=== PATIENT | male | born 1980 | race Caucasian/White ===

== ENCOUNTER 2016-12-02 13:09 | Emergency (ER) | payer SELFPAY ==
--- NOTE | 2016-12-02 14:38 | ED CLINICAL REPORT ---
Clinical Report - Physicians/Mid Levels [facility] [address] [place] [address] 12/02/2016 13:09 Patient: LIZ AGUILA Time Seen: 1316; upon arrival, initial patient contact, initial documentation, patient care assumed. Arrived- By private vehicle. Historian- patient and spouse. HISTORY OF PRESENT ILLNESS Chief Complaint: LEFT TESTICULAR PAIN. This started about 1 years ago and is still present and worsening. (1 weeks ago). The problem is described as moderate. It was gradual in onset and has been constant. No penile discharge, discomfort with urination, urinary frequency, genital lesion or urgency of urination. He has had moderate testicular pain, involving the left testicle with swelling. No redness. Able to void. Not voiding only small amounts. The patient has had unprotected intercourse. Sexual history is noncontributory. Similar symptoms previously: Milder. ( swelling started about a year ago, went to dr, had US done, was told he had a cyst, it never went away, and it has been slowly getting bigger and then this past week got even more big and more pain). Recent medical care: Not recently seen/assessed. REVIEW OF SYSTEMS No fever, flank pain, hematuria, abdominal pain or vomiting. No diarrhea, chest pain or difficulty breathing. All systems otherwise negative, except as recorded above. PAST HISTORY See nurses notes. ( PROBLEMS: Testicular cyst. Eye Injury. Immunizations. Corneal Foreign Body. --13:20 Jeanette Vaughn, R.N.). SOCIAL HISTORY Never smoker. History of weekly drug use: marijuana. No alcohol use. No recent travel. Is a local resident. He lives with spouse. FAMILY HISTORY Negative. ADDITIONAL NOTES The nursing notes have been reviewed with agreement regarding the chief complaint, HPI, ROS, PMH and patient medications and allergies. PHYSICAL EXAM Vital Signs: 12/02/2016 13:17 BP: 122/72. HR: 56. RR: 16. O2 saturation: 99%. Temp: 97.7 F. Pain level now: 7/10. Have been reviewed as abnormal and appear to be correct. Blood pressure normal. Bradycardic. Respiratory rate normal. Temperature normal. Oxygen saturation normal. Appearance: Alert. Oriented X3. No acute distress. ENT: Normal external inspection. Pharynx normal. Neck: Neck supple. CVS: Heart sounds normal. Respiratory: No respiratory distress. Breath sounds normal. Abdomen: Soft and nontender. Bowel sounds normal. No organomegaly. No mass. Back: Normal external inspection. : Testes descended. Abnormal genitalia. Medium sized left-sided scrotal mass consistent with solid mass. Not consistent with abscess, hernia, epididymitis or torsion. Scrotal swelling. Tenderness. No urethral discharge, genital lesion or herpes-like lesions. Skin: Skin warm and dry. Normal skin color. No rash. Normal skin turgor. Extremities: Extremities exhibit normal ROM. No lower extremity edema. Neuro: Oriented X 3. No motor deficit. No sensory deficit. LABS, X-RAYS, AND EKG Scrotal Sonogram: . multiple cysts on L epidydimitis, one as large 2.5cm by 2cm, and few cysts on R epidydimitis, good blood flow, venous and arterial verbal report by [facility]. Interpretation time: 1425. Laboratory Tests: UA-Culture if indicated: (LESLIE: 12/02/2016 14:30) ( MsgRcvd 12/02/2016 14:57) Final results Test Result Flag Units (Reference) URINE COLOR DEANDRA URINE APPEARANCE CLEAR URINE GLUCOSE NEGATIVE (NEGATIVE) URINE BILIRUBIN NEGATIVE (NEGATIVE) URINE KETONE NEGATIVE (NEGATIVE) URINE SPECIFIC GRAVITY 1.015 (1.010-1.030) URINE PH 7.5 (5.0-8.0) URINE PROTEIN 1+ (NEGATIVE) URINE UROBILINOGEN 1.0 EU/dL (0.2-1.0) URINE NITRITE NEGATIVE (NEGATIVE) URINE BLOOD NEGATIVE (NEGATIVE) URINE LEUK ESTERASE NEGATIVE (NEGATIVE) URINE RBC NONE SEEN rbc/hpf (0-1) URINE WBC 0-1 wbc/hpf (0-1) URINE EPITHELIAL CELLS 0-1 EPI/hpf (0-5) URINE BACTERIA NONE SEEN (NONE SEEN) URINE COMMENT CULT NOT INDICATED 1+ AMORPHOUS CRYSTALSURINE CULTURES ARE SET-UP BASED ON THE FOLLOWING CRITERIA:POSITIVE NITRITEPOSITIVE LEUKOCYTE ESTERASEGREATER THAN 10 WHITE BLOOD CELLSMODERATE (2+) OR GREATER BACTERIA CBC w Diff: (LESLIE: 12/02/2016 13:35) ( MsgRcvd 12/02/2016 13:46) Final results Test Result Flag Units (Reference) WHITE BLOOD COUNT 5.2 K/uL (4.5-11.5) RED BLOOD COUNT 4.90 M/uL (4.50-5.90) HEMOGLOBIN 14.9 gm/dL (13.5-17.5) HEMATOCRIT 44.2 % (41.0-53.0) MEAN CELL VOLUME 90 fL (80-100) MEAN CORPUSCULAR HGB 30 pg (26-34) MEAN CORPUSCULAR HGB CONC 34 g/dL (31-37) RED CELL DISTRIBUTION WIDTH 12.8 % (11.6-14.8) PLATELET COUNT 156 K/uL (150-400) NEUTROPHIL % 51.8 % (50-75) LYMPH % 31.5 % (25-40) MONO % 7.3 % (3-14) EOSINOPHIL % 8.9 H % (0-4) BASOPHIL % 0.5 % (0-2) CMP: (LESLIE: 12/02/2016 13:35) ( MsgRcvd 12/02/2016 13:56) Final results Test Result Flag Units (Reference) GLUCOSE 97 mg/dL (70-110) BUN 15 mg/dL (7-18) CREATININE 1.0 mg/dL (0.6-1.3) Estimated GFR >60 mL/min Estimated GFR- >60 mL/min Note: Persistent reduction over 3 months in eGFR<60 mL/min/1.73 m2 defines CKD. Patients with eGFR values>=60 mL/min/1.73 m2 may also have CKD if evidence ofpersistent proteinuria. Additional information may be foundat www.kidney.org. SODIUM 144 mmol/L (136-145) POTASSIUM 4.3 mmol/L (3.5-5.1) CHLORIDE 107 mmol/L (98-107) CARBON DIOXIDE 32 mmol/L (21-32) CALCIUM 9.1 mg/dL (8.5-10.1) TOTAL PROTEIN 7.1 g/dL (6.4-8.2) ALBUMIN 4.2 g/dL (3.3-5.0) BILIRUBIN, TOTAL 2.8 H mg/dL (0.0-1.0) ALKALINE PHOSPHATASE 59 U/L (46-116) AST (SGOT) 15 U/L (15-37) ALT (SGPT) 22 U/L (12-78) . PROGRESS AND PROCEDURES Patient and spouse counseled in person regarding the patient's stable condition, test results and diagnosis. 1433. Differential Diagnosis: Other possible considerations: testicular: ca, cyst, benign tumor, epidydimitis, hyrdocele. Above considerations are based on history, physical exam, reassessment, laboratory data and other information. Differential diagnosis was discussed with patient and patient's spouse. Disposition: Discharged home in good and unchanged condition (14:38). Condition: good and stable. CLINICAL IMPRESSION (B testicular cysts - multiple). INSTRUCTIONS Do not work today. Warnings: Further evaluation is necessary in order to conduct further tests and assess the possibility of serious illness. It is very important to follow up with a physician. GENERAL WARNINGS: Return or contact your physician immediately if your condition worsens or changes unexpectedly, if not improving as expected, or if other problems arise. Specifically return if problem worsens. Prescription Medications: Ultram 50 mg tablets: take 1-2 orally every 6 hours as needed for pain. Dispense twenty (20). No refills. Substitution is permissible. Understanding of the discharge instructions verbalized by patient and family. Follow-up with: Everardo Hernandez MD, Urology, , [address] [facility] [address]; Deejay Taylor MD, Urology, , [address] [address] Follow up in about two days even if well. Call for an appointment. Summary of care provided to patient and family. (Electronically signed by Selene Camejo A.R.N.P. 12/02/2016 18:09)
--- NOTE | 2016-12-02 14:38 | ED ORDER SUMMARY ---
..... Patient: ILZ AGUILA OrderSheet [facility] VisitID: [id number] [place] [address] 35y, M Registration Date/Time: 12/02/2016 ORDER SHEET Weight: 61.2 kg (stated) Allergies: None GENERAL ORDERS: US Scrotum/Testicular Urgent (13:12/02/2016 HBivens A.R.N.P.) (Ack 13:27 KHoerner) (14:29 KKnebel R.N.) UA-Culture if indicated Urgent (13:12/02/2016 HBivens A.R.N.P.) (Ack 13:27 KHoerner) CBC w Diff Urgent (13:12/02/2016 HBivens A.R.N.P.) (Ack 13:27 KHoerner) (14:29 KKnebel R.N.) CMP Urgent (13:12/02/2016 HBivens A.R.N.P.) (Ack 13:27 KHoerner) (14:29 KKnebel R.N.) MEDICATION ORDERS: IV FLUIDS: ORDER SHEET NOTES: [Electronically signed by Selene CamejoR.N.P. (18:09 12/02/2016)] [Electronically signed by Jeanette Vaughn R.N. (20:22 12/02/2016)] [Electronically locked/signed by Jeanette Vaughn R.N. (20:22 12/02/2016)]
--- NOTE | 2016-12-02 14:38 | ED ORDER SUMMARY ---
..... Patient: LIZ AGUILA OrderSheet [facility] VisitID: [id number] [place] [address] 35y, M Registration Date/Time: 12/02/2016 ORDER SHEET Weight: 61.2 kg (stated) Allergies: None GENERAL ORDERS: US Scrotum/Testicular Urgent (13:12/02/2016 HBivens A.R.N.P.) (Ack 13:27 KHoerner) (14:29 KKnebel R.N.) UA-Culture if indicated Urgent (13:12/02/2016 HBivens A.R.N.P.) (Ack 13:27 KHoerner) CBC w Diff Urgent (13:12/02/2016 HBivens A.R.N.P.) (Ack 13:27 KHoerner) (14:29 KKnebel R.N.) CMP Urgent (13:12/02/2016 HBivens A.R.N.P.) (Ack 13:27 KHoerner) (14:29 KKnebel R.N.) MEDICATION ORDERS: IV FLUIDS: ORDER SHEET NOTES: [Electronically signed by Selene CamejoR.N.P. (18:09 12/02/2016)] [Electronically signed by Jeanette Vaughn R.N. (20:22 12/02/2016)] [Electronically locked/signed by Jeanette Vaughn R.N. (20:22 12/02/2016)]
--- NOTE | 2016-12-02 14:38 | ED NURSING NOTES ---
Clinical Report - Nurses [facility] [address] [place] [address] 12/02/2016 13:09 Patient: LIZ AGUILA TRIAGE Triage time 13:Dec 02 2016. Acuity: LEVEL 3. Chief Complaint: (lump on left testicle). Alert. No acute distress. SHASHANK COMA SCORE: [place] Coma Scale: 15- eyes open spontaneously (4); best verbal response- oriented x 4 (5); best motor response- obeys commands (6). --13:25 Jeanette Vaughn R.N. 13:17 12/02/16. BP: 122/72. HR: 56. RR: 16. O2 saturation: 99%. Temp: 97.7 F. Pain level now: 01/03. --13:25 Jeanette Vaughn R.N. Weight: 61.2 kg stated. Height/Length: 69 inches Per Patient. BMI: 19.9. --13:23 Jeanette Vaughn R.N. Medications None. --13:20 Jeanette Vaughn R.N. Medication/allergy information source: the patient. --13:25 Jeanette Vaughn R.N. Allergies None. --13:20 Jeanette Vaughn R.N. History Arrived by private vehicle. Historian: patient. Onset. (over a year). ( pt states that he had US at [facility] about a year ago and dx with a cyst. pt states that the lump has increased and is causing him pain. pt states that he has been unable to work all week due to pain.). He has had testicular pain. Treatment SKI INSTRUCTOR: None. PAST MEDICAL HX: Immunizations: up-to-date. SOCIAL HX: Never smoker. History of occasional drug use: marijuana. No alcohol use. No infectious disease exposure. SELF HARM ASSESSMENT: A self harm assessment was performed. The patient answered "no" to the question "Do you have thoughts of harming or killing yourself?". FALL RISK ASSESSMENT: Fall risk assessment completed. No fall risk identified. NUTRITIONAL RISK ASSESSMENT: The nutritional risk assessment revealed no deficiencies. FUNCTIONAL ASSESSMENT: Functional assessment: no impairments noted. LEARNING NEEDS ASSESSMENT: The learning needs assessment revealed no barriers. ABUSE ASSESSMENT: Abuse assessment: The patient was asked "Do you feel safe in your home?". SKIN INTEGRITY ASSESSMENT: Skin integrity risk assessment completed. No skin integrity risk identified. --13:25 Jeanette Vaughn R.N. PROBLEMS: Testicular cyst. Eye Injury. Immunizations. Corneal Foreign Body. --13:20 Jeanette Vaughn R.N. Interventions ID band on patient. To room. --13:25 Jeanette Vaughn R.N. PHYSICAL ASSESSMENT GENERAL / NEURO / PSYCH: Alert. Oriented X 4. Appears in no acute distress. RESPIRATORY: Respirations not labored. CVS: Capillary refill less than 2 seconds. GI / : Abdomen soft and nontender. Left testicular tenderness. ( swelling in left testicle). SKIN: Skin is warm and dry. --13:25 Jeanette Vaughn R.N. NURSING PROGRESS NOTES Patient gowned. Head of bed elevated. Patient identifiers checked. Call light placed in reach. Side rails up. Bed placed in lowest position. Brakes of bed on. --13:25 Jeanette Vaughn R.N. Blood samples drawn from the right antecubital space with Vacutainer 23g by [employer] ; labeled in presence of the patient and sent to lab: kimberly carvalho. --13:38 Griselda Whitfield. DISPOSITION / DISCHARGE Departure time: 1344Dec 02 2016. Condition at departure: unchanged. No learning barriers present. Discharge instructions provided and reviewed with the patient. Reviewed medication(s) side effects, precautions, dosing and course information. Prescription(s) given to the patient. Reviewed referral to a urologist for followup. The patient was discharged home and accompanied by spouse. He left the Emergency Department ambulatory and via private vehicle. Family member driving. FALL RISK ASSESSMENT: Fall risk assessment completed. No fall risk identified. --15:20 Jeanette Vaughn R.N. 13:45 12/02/16. BP: 110/70. HR: 57. RR: 16. O2 saturation: 100%. Pain level now: 01/03. --15:20 Jeanette Vaughn R.N. Locked/Released at 12/02/2016 20:22 by Jeanette Vaughn R.N.
--- NOTE | 2016-12-02 14:38 | ED NURSING NOTES ---
Clinical Report - Nurses [facility] [address] [place] [address] 12/02/2016 13:09 Patient: LIZ AGUILA TRIAGE Triage time 13:Dec 02 2016. Acuity: LEVEL 3. Chief Complaint: (lump on left testicle). Alert. No acute distress. SHASHANK COMA SCORE: [place] Coma Scale: 15- eyes open spontaneously (4); best verbal response- oriented x 4 (5); best motor response- obeys commands (6). --13:25 Jeanette Vaughn R.N. 13:17 12/02/16. BP: 122/72. HR: 56. RR: 16. O2 saturation: 99%. Temp: 97.7 F. Pain level now: 01/03. --13:25 Jeanette Vaughn R.N. Weight: 61.2 kg stated. Height/Length: 69 inches Per Patient. BMI: 19.9. --13:23 Jeanette Vaughn R.N. Medications None. --13:20 Jeanette Vaughn R.N. Medication/allergy information source: the patient. --13:25 Jeanette Vaughn R.N. Allergies None. --13:20 Jeanette Vaughn R.N. History Arrived by private vehicle. Historian: patient. Onset. (over a year). ( pt states that he had US at [facility] about a year ago and dx with a cyst. pt states that the lump has increased and is causing him pain. pt states that he has been unable to work all week due to pain.). He has had testicular pain. Treatment EMERGING SOLUTIONS EXECUTIVE: None. PAST MEDICAL HX: Immunizations: up-to-date. SOCIAL HX: Never smoker. History of occasional drug use: marijuana. No alcohol use. No infectious disease exposure. SELF HARM ASSESSMENT: A self harm assessment was performed. The patient answered "no" to the question "Do you have thoughts of harming or killing yourself?". FALL RISK ASSESSMENT: Fall risk assessment completed. No fall risk identified. NUTRITIONAL RISK ASSESSMENT: The nutritional risk assessment revealed no deficiencies. FUNCTIONAL ASSESSMENT: Functional assessment: no impairments noted. LEARNING NEEDS ASSESSMENT: The learning needs assessment revealed no barriers. ABUSE ASSESSMENT: Abuse assessment: The patient was asked "Do you feel safe in your home?". SKIN INTEGRITY ASSESSMENT: Skin integrity risk assessment completed. No skin integrity risk identified. --13:25 Jeanette Vaughn R.N. PROBLEMS: Testicular cyst. Eye Injury. Immunizations. Corneal Foreign Body. --13:20 Jeanette Vaughn R.N. Interventions ID band on patient. To room. --13:25 Jeanette Vaughn R.N. PHYSICAL ASSESSMENT GENERAL / NEURO / PSYCH: Alert. Oriented X 4. Appears in no acute distress. RESPIRATORY: Respirations not labored. CVS: Capillary refill less than 2 seconds. GI / : Abdomen soft and nontender. Left testicular tenderness. ( swelling in left testicle). SKIN: Skin is warm and dry. --13:25 Jeanette Vaughn R.N. NURSING PROGRESS NOTES Patient gowned. Head of bed elevated. Patient identifiers checked. Call light placed in reach. Side rails up. Bed placed in lowest position. Brakes of bed on. --13:25 Jeanette Vaughn R.N. Blood samples drawn from the right antecubital space with Vacutainer 23g by [employer] ; labeled in presence of the patient and sent to lab: kimberly carvalho. --13:38 Griselda Whitfield. DISPOSITION / DISCHARGE Departure time: 1344Dec 02 2016. Condition at departure: unchanged. No learning barriers present. Discharge instructions provided and reviewed with the patient. Reviewed medication(s) side effects, precautions, dosing and course information. Prescription(s) given to the patient. Reviewed referral to a urologist for followup. The patient was discharged home and accompanied by spouse. He left the Emergency Department ambulatory and via private vehicle. Family member driving. FALL RISK ASSESSMENT: Fall risk assessment completed. No fall risk identified. --15:20 Jeanette Vaughn R.N. 13:45 12/02/16. BP: 110/70. HR: 57. RR: 16. O2 saturation: 100%. Pain level now: 01/03. --15:20 Jeanette Vaughn R.N. Locked/Released at 12/02/2016 20:22 by Jeanette Vaughn R.N.
--- NOTE | 2016-12-02 14:42 | DIAGNOSTIC IMAGING REPORT ---
PROCEDURE: US SCROTUM/TESTICLE INDICATION: Left testicular pain x 4 days. TECHNIQUE: Beckford scale and color Doppler sonographic images through the scrotum were obtained. COMPARISON: None. FINDINGS: RIGHT TESTICLE: Right testicle measures 4.2 x 2.3 x 3.1 cm with normal echo structure and vascularity. Multiple epididymal head cysts, largest 8 mm. Small hydrocele. LEFT TESTICLE: Left testicle measures at 3.5 x 2.9 x 3.4 cm with normal echo structure and vascularity. Multiple large epididymal cysts, largest 4.9 cm. IMPRESSION: 1. Multiple left epididymal cysts, largest 4.9 cm 2. Multiple small right epididymal head cysts 3. Normal testicles 4. Small right hydrocele
--- NOTE | 2016-12-02 20:23 | ED MAR SUMMARY ---
..... Medication Administration Record [facility] [address] [place], [place] [id number] Patient: LIZ AGUILA Visit ID: [id number] 35y, M Weight: 61.2 kg Height/Length: 69 in BMI: 19.9 ALLERGIES: None
--- NOTE | 2016-12-02 20:23 | ED DISCHARGE INSTRUCTIONS ---
Patient: LZI AGUILA General Instructions [facility] VisitID: [id number] [place] [address] 35y, M Registration Date/Time: 12/02/2016 (B testicular cysts - multiple). INSTRUCTIONS Do not work today. Warnings: Further evaluation is necessary in order to conduct further tests and assess the possibility of serious illness. It is very important to follow up with a physician. GENERAL WARNINGS: Return or contact your physician immediately if your condition worsens or changes unexpectedly, if not improving as expected, or if other problems arise. Specifically return if problem worsens. Prescription Medications: Ultram 50 mg tablets: take 1-2 orally every 6 hours as needed for pain. Dispense twenty (20). No refills. Substitution is permissible. Understanding of the discharge instructions verbalized by patient and family. Follow-up with: Everardo Hernandez MD, Urology, , [address] [address]; Deejay Taylor MD, Urology, , [address] [address] Follow up in about two days even if well. Call for an appointment. Summary of care provided to patient and family. ADDITIONAL INFORMATION Tramadol Hydrochloride Oral tablet What is this medicine? TRAMADOL (TRA ma dole) is a pain reliever. It is used to treat moderate to severe pain in adults. How should I use this medicine? Take this medicine by mouth with a full glass of water. Follow the directions on the prescription label. If the medicine upsets your stomach, take it with food or milk. Do not take more medicine than you are told to take. Talk to your software engineer web services regarding the use of this medicine in children. Special care may be needed. What side effects may I notice from receiving this medicine? Side effects that you should report to your doctor or health care giver as soon as possible: allergic reactions like skin rash, itching or hives, swelling of the face, lips, or tongue breathing difficulties, wheezing confusion itching light headedness or fainting spells redness, blistering, peeling or loosening of the skin, including inside the mouth seizures Side effects that usually do not require medical attention (report to your doctor or health care giver if they continue or are bothersome): constipation dizziness drowsiness headache nausea, vomiting What may interact with this medicine? Do not take this medicine with any of the following medications: MAOIs like Carbex, Eldepryl, Marplan, Nardil, and Parnate This medicine may also interact with the following medications: alcohol or medicines that contain alcohol antihistamines benzodiazepines bupropion carbamazepine or oxcarbazepine clozapine cyclobenzaprine digoxin furazolidone linezolid medicines for depression, anxiety, or psychotic disturbances medicines for migraine headache like almotriptan, eletriptan, frovatriptan, naratriptan, rizatriptan, sumatriptan, zolmitriptan medicines for pain like pentazocine, buprenorphine, butorphanol, meperidine, nalbuphine, and propoxyphene medicines for sleep muscle relaxants naltrexone phenobarbital phenothiazines like perphenazine, thioridazine, chlorpromazine, mesoridazine, fluphenazine, prochlorperazine, promazine, and trifluoperazine procarbazine warfarin What if I miss a dose? If you miss a dose, take it as soon as you can. If it is almost time for your next dose, take only that dose. Do not take double or extra doses. Where should I keep my medicine? Keep out of the reach of children. Store at room temperature between 15 and 30 degrees C (59 and 86 degrees F). Keep container tightly closed. Throw away any unused medicine after the expiration date. What should I tell my health care provider before I take this medicine? They need to know if you have any of these conditions: brain tumor depression drug abuse or addiction head injury if you frequently drink alcohol containing drinks kidney disease or trouble passing urine liver disease lung disease, asthma, or breathing problems seizures or epilepsy suicidal thoughts, plans, or attempt; a previous suicide attempt by you or a family member an unusual or allergic reaction to tramadol, codeine, other medicines, foods, dyes, or preservatives or trying to get breast-feeding What should I watch for while using this medicine? Tell your doctor or health care giver if your pain does not go away, if it gets worse, or if you have new or a different type of pain. You may develop tolerance to the medicine. Tolerance means that you will need a higher dose of the medicine for pain relief. Tolerance is normal and is expected if you take this medicine for a long time. Do not suddenly stop taking your medicine because you may develop a severe reaction. Your body becomes used to the medicine. This does NOT mean you are addicted. Addiction is a behavior related to getting and using a drug for a non-medical reason. If you have pain, you have a medical reason to take pain medicine. Your doctor will tell you how much medicine to take. If your doctor wants you to stop the medicine, the dose will be slowly lowered over time to avoid any side effects. You may get drowsy or dizzy. Do not drive, use machinery, or do anything that needs mental alertness until you know how this medicine affects you. Do not stand or sit up quickly, especially if you are an older patient. This reduces the risk of dizzy or fainting spells. Alcohol can increase or decrease the effects of this medicine. Avoid alcoholic drinks. You may have constipation. Try to have a bowel movement at least every 2 to 3 days. If you do not have a bowel movement for 3 days, call your doctor or health care giver. Your mouth may get dry. Chewing sugarless gum or sucking hard candy, and drinking plenty of water may help. Contact your doctor if the problem does not go away or is severe. You have been given the following additional information: Tramadol Hydrochloride Oral tablet Do not work today. (Electronically signed by Selene Camejo A.R.N.P. 12/02/2016 18:09)
--- NOTE | 2016-12-02 20:23 | ED MED RECONCILIATION SUMMARY ---
Patient: LIZ AGUILA Medication Reconciliation Report [facility] VisitID: [id number] [address] [place] [address] 35y, M Registration Date/Time: 12/02/2016 Weight: 61.2 kg Height/Length: 69 in. BMI: 19.9 ALLERGIES: None The patient's Home Medications are listed below: NONE. The source(s) of the original Home Medication information: patient The following Medications were given to the patient in the Emergency Department: None. The following Medications were prescribed to the patient: Ultram 50 mg tablets: take 1-2 orally every 6 hours as needed for pain. Dispense twenty (20). No refills. Substitution is permissible. -- Selene Camejo A.R.N.P.
--- NOTE | 2016-12-02 20:23 | ED DISCHARGE INSTRUCTIONS ---
Patient: LIZ AGUILA General Instructions [facility] VisitID: [id number] [place] [address] 35y, M Registration Date/Time: 12/02/2016 (B testicular cysts - multiple). INSTRUCTIONS Do not work today. Warnings: Further evaluation is necessary in order to conduct further tests and assess the possibility of serious illness. It is very important to follow up with a physician. GENERAL WARNINGS: Return or contact your physician immediately if your condition worsens or changes unexpectedly, if not improving as expected, or if other problems arise. Specifically return if problem worsens. Prescription Medications: Ultram 50 mg tablets: take 1-2 orally every 6 hours as needed for pain. Dispense twenty (20). No refills. Substitution is permissible. Understanding of the discharge instructions verbalized by patient and family. Follow-up with: Everardo Hernandez MD, Urology, , [address] [address]; Deejay Taylor MD, Urology, , [address] [address] Follow up in about two days even if well. Call for an appointment. Summary of care provided to patient and family. ADDITIONAL INFORMATION Tramadol Hydrochloride Oral tablet What is this medicine? TRAMADOL (TRA ma dole) is a pain reliever. It is used to treat moderate to severe pain in adults. How should I use this medicine? Take this medicine by mouth with a full glass of water. Follow the directions on the prescription label. If the medicine upsets your stomach, take it with food or milk. Do not take more medicine than you are told to take. Talk to your cub reporter regarding the use of this medicine in children. Special care may be needed. What side effects may I notice from receiving this medicine? Side effects that you should report to your doctor or health care advocate as soon as possible: allergic reactions like skin rash, itching or hives, swelling of the face, lips, or tongue breathing difficulties, wheezing confusion itching light headedness or fainting spells redness, blistering, peeling or loosening of the skin, including inside the mouth seizures Side effects that usually do not require medical attention (report to your doctor or health care advocate if they continue or are bothersome): constipation dizziness drowsiness headache nausea, vomiting What may interact with this medicine? Do not take this medicine with any of the following medications: MAOIs like Carbex, Eldepryl, Marplan, Nardil, and Parnate This medicine may also interact with the following medications: alcohol or medicines that contain alcohol antihistamines benzodiazepines bupropion carbamazepine or oxcarbazepine clozapine cyclobenzaprine digoxin furazolidone linezolid medicines for depression, anxiety, or psychotic disturbances medicines for migraine headache like almotriptan, eletriptan, frovatriptan, naratriptan, rizatriptan, sumatriptan, zolmitriptan medicines for pain like pentazocine, buprenorphine, butorphanol, meperidine, nalbuphine, and propoxyphene medicines for sleep muscle relaxants naltrexone phenobarbital phenothiazines like perphenazine, thioridazine, chlorpromazine, mesoridazine, fluphenazine, prochlorperazine, promazine, and trifluoperazine procarbazine warfarin What if I miss a dose? If you miss a dose, take it as soon as you can. If it is almost time for your next dose, take only that dose. Do not take double or extra doses. Where should I keep my medicine? Keep out of the reach of children. Store at room temperature between 15 and 30 degrees C (59 and 86 degrees F). Keep container tightly closed. Throw away any unused medicine after the expiration date. What should I tell my health care provider before I take this medicine? They need to know if you have any of these conditions: brain tumor depression drug abuse or addiction head injury if you frequently drink alcohol containing drinks kidney disease or trouble passing urine liver disease lung disease, asthma, or breathing problems seizures or epilepsy suicidal thoughts, plans, or attempt; a previous suicide attempt by you or a family member an unusual or allergic reaction to tramadol, codeine, other medicines, foods, dyes, or preservatives or trying to get breast-feeding What should I watch for while using this medicine? Tell your doctor or health care advocate if your pain does not go away, if it gets worse, or if you have new or a different type of pain. You may develop tolerance to the medicine. Tolerance means that you will need a higher dose of the medicine for pain relief. Tolerance is normal and is expected if you take this medicine for a long time. Do not suddenly stop taking your medicine because you may develop a severe reaction. Your body becomes used to the medicine. This does NOT mean you are addicted. Addiction is a behavior related to getting and using a drug for a non-medical reason. If you have pain, you have a medical reason to take pain medicine. Your doctor will tell you how much medicine to take. If your doctor wants you to stop the medicine, the dose will be slowly lowered over time to avoid any side effects. You may get drowsy or dizzy. Do not drive, use machinery, or do anything that needs mental alertness until you know how this medicine affects you. Do not stand or sit up quickly, especially if you are an older patient. This reduces the risk of dizzy or fainting spells. Alcohol can increase or decrease the effects of this medicine. Avoid alcoholic drinks. You may have constipation. Try to have a bowel movement at least every 2 to 3 days. If you do not have a bowel movement for 3 days, call your doctor or health care advocate. Your mouth may get dry. Chewing sugarless gum or sucking hard candy, and drinking plenty of water may help. Contact your doctor if the problem does not go away or is severe. You have been given the following additional information: Tramadol Hydrochloride Oral tablet Do not work today. (Electronically signed by Selene Camejo A.R.N.P. 12/02/2016 18:09)
--- NOTE | 2016-12-02 20:23 | ED MAR SUMMARY ---
..... Medication Administration Record [facility] [address], [place] [id number] Patient: LIZ AGUILA Visit ID: [id number] 35y, M Weight: 61.2 kg Height/Length: 69 in BMI: 19.9 ALLERGIES: None
--- NOTE | 2016-12-02 20:23 | ED MED RECONCILIATION SUMMARY ---
Patient: LIZ AGUILA Medication Reconciliation Report [facility] VisitID: [id number] [address] [place] [address] 35y, M Registration Date/Time: 12/02/2016 Weight: 61.2 kg Height/Length: 69 in. BMI: 19.9 ALLERGIES: None The patient's Home Medications are listed below: NONE. The source(s) of the original Home Medication information: patient The following Medications were given to the patient in the Emergency Department: None. The following Medications were prescribed to the patient: Ultram 50 mg tablets: take 1-2 orally every 6 hours as needed for pain. Dispense twenty (20). No refills. Substitution is permissible. -- Selene Camejo A.R.N.P.
== END 2016-12-02 14:25 | disposition home or self-care (01) ==
LOC: ED SRH 13:09
DX: N44.2 Benign cyst of testis (principal)
CPT/HCPCS: 90004; 90074; 90100; 95059